=== PATIENT | female | born 1965 | race Caucasian/White ===

== ENCOUNTER 2016-10-13 13:47 | Emergency (ER) | payer BC ==
[~2016-10-13] VITALS: Ht 154.9 cm; Wt 62.6 kg
[~2016-10-13 13:47] MED LIST: ADULT LOW DOSE81 M1 PO; ADVIL,NUPRIN,M200 MG PO; AMITRIPTYLINE H10 M1 NG; CLARITIN,ALAVAR10 MG PO; DAILY VALUE1 EACH PO; ENDOCET 5-3251 EACH PO; FERROUS SULFAT325 MG PO; FIORICET,ESG1 TABLET PO; FLEXERIL10 MG PO; FLONASE16 G1 BOTH NARES; HYDROCODON-ACE1 EAC7 PO; LO-DOSE ASPIRIN81 M1 PO; LOVENOX40 MG/0.4 SC; MOTRIN600 MG PO; MOTRIN800 MG PO; MULTI-DAY VITA1 EACH PO; NAPROSYN500 MG PO; NOHOMEMEDS; PERCOCET 5/31 TABLET PO; SENNA PLUS TAB1 EACH PO
[2016-10-13] MEDS ORDERED: ULTRACET1 TABLET PO (16:39)
[2016-10-13] MEDS ORDERED: MOTRIN600 MG PO (16:39)
[2016-10-13 16:51] VITALS: BP 157/85
== END 2016-10-13 16:51 | disposition home or self-care (01) ==
LOC: EME 13:47
PROC: 2W3HX1Z Immobilization of Left Thumb using Splint (ICD-10-PCS; principal; 2016-10-13)
DX: M65.312 Trigger thumb, left thumb (principal); Z91.81 History of falling; Z87.891 Personal history of nicotine dependence
CPT/HCPCS: 73130; 99281; 99284

== ENCOUNTER 2017-01-12 12:20 | Emergency (ER) | payer BC ==
[~2017-01-12] VITALS: Ht 154.9 cm; Wt 60.3 kg
[~2017-01-12 12:20] MED LIST changes: +ULTRACET1 TABLET PO
[2017-01-12 14:30] VITALS: BP 152/70
== END 2017-01-12 14:31 | disposition home or self-care (01) ==
LOC: EME 12:20
DX: S63.502A Unspecified sprain of left wrist, initial encounter (principal); X50.1XXA Overexertion from prolonged static or awkward postures, initial encounter
CPT/HCPCS: 73110; 99281; 99283

== ENCOUNTER 2017-04-30 10:11 | Emergency (ER) | payer BC ==
[~2017-04-30] VITALS: Ht 154.9 cm; Wt 58.6 kg
[2017-04-30] MEDS ORDERED: AMOXICILLIN500 M1 PO (11:17)
[2017-04-30] MEDS ORDERED: ANTIVERT25 MG PO (11:17)
[2017-04-30 11:32] VITALS: BP 116/75
== END 2017-04-30 11:32 | disposition home or self-care (01) ==
LOC: EME 10:11
DX: H66.93 Otitis media, unspecified, bilateral (principal); R42 Dizziness and giddiness; M54.2 Cervicalgia; R11.0 Nausea; Z87.891 Personal history of nicotine dependence
CPT/HCPCS: 99281; 99282